=== PATIENT | male | born 1965 | race Caucasian/White ===

== ENCOUNTER → 2019-04-17 | Outpatient (CLI) | payer BC ==
--- NOTE | 2019-04-17 13:29 | P.STRESS ---
- Stress Test Note Stress Test Results/Findings: Exam Performed: NM stress cardiolite complete Exam Date: 04/17/19 Reason for Exam: ABNORMAL EKG, CHEST PAIN, JESSIE Height: 6 ft 2 in Weight: 190 kg Protocol: CARDIOLITE TIAGO Stage: III Duration of Exercise: 7:10 Resting Heart Rate: 67 Resting Blood Pressure: 149/98 Maximum Achieved Heart Rate: 152 Maximum Achieved Blood Pressure: 189/91 85% PMHR: 140 100% PMHR: 165 METS: 8.7 Technologist Comment: Stress Test Results/Findings: His is a 54-year-old gentleman with history of smoking being evaluated for chest pain and shortness of breath. Stress data: Baseline EKG showed sinus rhythm with normal SD interval and QRS duration. Blood pressure at rest is 149/98, pulse rate of 67. Patient walked on the Tiago protocol for 7 minutes and 10 seconds achieving a maximum rate of 150 with blood pressure 189/91. EKGs taken during and after exercise did not reveal any significant changes from the baseline. Final impression #1. Negative stress test #2 patient did not experience any chest pain #3 . Report on the nuclear images to be given by the radiologist
--- NOTE | 2019-04-17 13:50 | EST ---
Stress Test Results/Findings: Exam Performed: NM stress cardiolite complete Exam Date: 04/17/19 Reason for Exam: ABNORMAL EKG, CHEST PAIN, JESSIE Height: 6 ft 2 in Weight: 190 kg Protocol: CARDIOLITE TIAGO Stage: III Duration of Exercise: 7:10 Resting Heart Rate: 67 Resting Blood Pressure: 149/98 Maximum Achieved Heart Rate: 152 Maximum Achieved Blood Pressure: 189/91 85% PMHR: 140 100% PMHR: 165 METS: 8.7 Technologist Comment: Stress Test Results/Findings: His is a 54-year-old gentleman with history of smoking being evaluated for chest pain and shortness of breath. Stress data: Baseline EKG showed sinus rhythm with normal MN interval and QRS duration. Blood pressure at rest is 149/98, pulse rate of 67. Patient walked on the Tiago protocol for 7 minutes and 10 seconds achieving a maximum rate of 150 with blood pressure 189/91. EKGs taken during and after exercise did not reveal any significant changes from the baseline. Final impression #1. Negative stress test #2 patient did not experience any chest pain #3 . Report on the nuclear images to be given by the radiologist LAVELLE
--- NOTE | 2019-04-17 14:08 | NM ---
EXAMINATION TYPE: NM stress cardiolite complete DATE OF EXAM: 04/17/2019 COMPARISON: NONE HISTORY: Chest pain TECHNIQUE: After the intravenous administration of 9.6 mCi Tc 99m Sestamibi - Rest images obtained 4 5 minutes post injection. The patient exercised using a CHANDU protocol and 1 minute prior to peak e xercise was injected with 26.3 mCi Tc 99m Sestamibi - Stress images obtained 10 minutes post injectio n. FINDINGS: Targeted heart rate was achieved during performance of the study. Review of stress and rest SPECT danica ges demonstrates decreased uptake on both stress and rest images along the inferior wall left ventric le extending to the inferoseptal and inferolateral left ventricle wall. Gated analysis shows normal wall motion with an estimated left ventricular ejection fraction of 64 %. IMPRESSION: No scintigraphic evidence for reversible ischemia. Correlate for possible prior infarct along the inf erior wall left ventricle Consider echocardiographic correlation for elevated ejection fraction.
== END | disposition home or self-care (01) ==
LOC: RADNMMAIN 08:43
PROVIDERS: ATTEND Family Medicine
DX: R07.9 Chest pain, unspecified (principal)
CPT/HCPCS: 93017; 78452; A9500

== ENCOUNTER → 2019-04-30 | Outpatient (CLI) | payer BC ==
--- NOTE | 2019-05-06 11:01 | ECHOF ---
Referral Reason:R94.39 Abnormal results on cardiovasular study MEASUREMENTS -------- HEIGHT: 182.9 cm WEIGHT: 88.5 kg BP: RVIDd: 3.7 cm (< 3.3) IVSd: 1.2 cm (0.6 - 1.1) LVIDd: 4.3 cm (3.9 - 5.3) LVPWd: 1.1 cm (0.6 - 1.1) IVSs: 1.4 cm LVIDs: 3.4 cm LVPWs: 1.0 cm LA Diam: 3.3 cm (2.7 - 3.8) LAESV Index (A-L): 24.06 ml/m Ao Diam: 3.3 cm (2.0 - 3.7) AV Cusp: 2.3 cm (1.5 - 2.6) MV EXCURSION: 18.221 mm (> 18.000) MV EF SLOPE: 89 mm/s (70 - 150) EPSS: 0.4 cm MV E Aj: 0.65 m/s MV DecT: 116 ms MV A Aj: 0.70 m/s MV E/A Ratio: 0.93 RAP: 5.00 mmHg RVSP: 22.56 mmHg FINDINGS -------- Sinus rhythm. This was a technically good study. The left ventricular size is normal. There is mild concentric left ventricular hypertrophy. Overa ll left ventricular systolic function is normal with, an EF between 55 - 60 %. The diastolic fillin g pattern is normal for the age of the patient 6.81. The right ventricle is normal in size. The left atrial size is normal. Normal LA size by volume 22+/-6 ml/m2. The right atrial size is normal. There is mild aortic valve sclerosis. There is no evidence of aortic regurgitation. Mild mitral annular calcification present. Mild mitral regurgitation is present. Mild tricuspid regurgitation present. Right ventricular systolic pressure is normal at < 35 mmHg. There is no evidence of pulmonary hypertension. There is no pulmonic regurgitation present. The aortic root size is normal. Echo free space represents a pericardial fat pad. CONCLUSIONS -------- 1. Sinus rhythm. 2. This was a technically good study. 3. The left ventricular size is normal. 4. There is mild concentric left ventricular hypertrophy. 5. Overall left ventricular systolic function is normal with, an EF between 55 - 60 %. 6. The diastolic filling pattern is normal for the age of the patient 6.81 7. The right ventricle is normal in size. 8. The left atrial size is normal. 9. Normal LA size by volume 22+/-6 ml/m2. 10. The right atrial size is normal. 11. There is mild aortic valve sclerosis. 12. Mild mitral annular calcification present. 13. Mild tricuspid regurgitation present. 14. Right ventricular systolic pressure is normal at < 35 mmHg. 15. There is no evidence of pulmonary hypertension. 16. There is no pulmonic regurgitation present. 17. The aortic root size is normal. 18. Echo free space represents a pericardial fat pad. ACCOUNTING POLICY CONSULTANT: Kalina Renteria RDCS
== END | disposition home or self-care (01) ==
LOC: RADECHMAIN 16:19
PROVIDERS: ATTEND Family Medicine
DX: R94.39 Abnormal result of other cardiovascular function study (principal)
CPT/HCPCS: 93306

== ENCOUNTER 2021-04-04 13:26 | Observation (INO) | payer BC ==
--- NOTE | 2021-04-04 15:21 | CT ---
EXAMINATION TYPE: CT brain wo con DATE OF EXAM: 04/04/2021 COMPARISON: 09/24/2009 INDICATION: double vision DLP: 1085.8 mGycm, Automated exposure control for dose reduction was used. CONTRAST: None CT of the brain is performed utilizing 3 mm thick sections through the posterior fossa and 3 mm thick sections through the remaining calvarium. Study is performed within 24 hours of arrival to the hosp [facility]. No abnormal hyperdensity is present to suggest an acute intracranial hemorrhage. No mass lesion is evident. No acute infarcts are evident. Ventricles and sulci are appropriate for the patient age. Mucosal thickening is through the maxillary sinuses. Remaining paranasal sinuses and mastoid air cell s are clear. IMPRESSIONS: 1. No suspicious acute intracranial changes. If symptoms persist, consider MRI for additional jyoti p.
[2021-04-04 15:24] LABS: ALT 15 U/L (4-49); AST 25 U/L (17-59); African American GFR (CKD) >90 (>60 ml/min/1.73 sqM); Albumin 4.1 g/dL (3.5-5.0); Alkaline Phosphatase 100 U/L (38-126); Anion Gap 10 mmol/L; Blood Urea Nitrogen 13 mg/dL (9-20); Calcium 9.5 mg/dL (8.4-10.2); Carbon Dioxide 24 mmol/L (22-30); Chloride 109 mmol/L (98-107); Glucose 82 mg/dL (74-99); Non-African American GFR(CKD) >90 (>60 ml/min/1.73 sqM); Potassium 4.2 mmol/L (3.5-5.1); Sodium 143 mmol/L (137-145); Total Bilirubin 0.6 mg/dL (0.2-1.3); Total Protein 7.3 g/dL (6.3-8.2)
[2021-04-04 15:31] LABS: HCT 45.1 % (39.0-53.0); HGB 14.9 gm/dL (13.0-17.5); MCH 30.9 pg (25.0-35.0); MCHC 33.1 g/dL (31.0-37.0); MCV 93.4 fL (80.0-100.0); Mean Platelet Volume 7.1; Platelet Count 299 k/uL (150-450); RBC 4.83 m/uL (4.30-5.90); RDW 14.1 % (11.5-15.5); WBC 6.3 k/uL (3.8-10.6)
--- NOTE | 2021-04-04 15:37 | ED ---
General Adult HPI - General Chief complaint: Eye Problems Stated complaint: double vision Time Seen by Provider: 04/04/21 13:35 Source: patient, family, RN notes reviewed, old records reviewed Mode of arrival: ambulatory Limitations: no limitations - History of Present Illness Initial comments: This is a 56-year-old male who presents emergency Department complaining of double vision. Patient states he woke up this morning with a double vision. Patient states if he closes his right eye the double vision appears to go away. Patient states he cannot make the double vision occurred is not always there. Patient states he is also diagnosed with COVID this morning. Patient denies any headache patient denies any numbness or weakness. Patient denies any slurred speech. Patient denies any other problems at this time besides the COVID in the double vision. Patient denies any other medical problems. - Related Data Home Medications Medication Instructions Recorded Confirmed Aspirin 81 mg PO DAILY 03/02/16 03/02/16 Cholecalciferol [Vitamin D3] 1,000 unit PO DAILY 03/02/16 03/02/16 Cinnamon Bark [Cinnamon] 500 mg PO DAILY 03/02/16 03/02/16 [place]-3 Fatty Acids/Fish Oil [Fish 1 each PO DAILY 03/02/16 03/02/16 Oil 1,000 mg Softgel] Ranitidine HCl 150 mg PO DAILY 03/02/16 03/07/16 Allergies Allergy/AdvReac Type Severity Reaction Status Date / Time No Known Allergies Allergy Verified 04/04/21 13:44 Review of Systems ROS Statement: Those systems with pertinent positive or pertinent negative responses have been documented in the HPI. ROS Other: All systems not noted in ROS Statement are negative. Past Medical History Past Medical History: GERD/Reflux History of Any Multi-Drug Resistant Organisms: None Reported Past Surgical History: No Surgical Hx Reported Additional Past Anesthesia/Blood Transfusion Reaction / Comment(s): never had anesthesia, no family problems with anesthesia Past Psychological History: No Psychological Hx Reported Smoking Status: Current every day smoker Past Alcohol Use History: Occasional Past Drug Use History: None Reported - Past Family History Mother Family Medical History: Cancer General Exam - General Exam Comments Initial Comments: GENERAL: Patient is well-developed and well-nourished. Patient is nontoxic and well- hydrated and is in no acute distress. ENT: Neck is soft and supple. No significant lymphadenopathy is noted. Oropharynx is clear. Moist mucous membranes. Neck has full range of motion without eliciting any pain. EYES: The sclera were anicteric and conjunctiva were pink and moist. Extraocular motion appears to be intact however the right eye moves medially quicker than expected.. Eyelids were unremarkable. PULMONARY: Unlabored respirations. Good breath sounds bilaterally. No audible rales rhonchi or wheezing was noted. CARDIOVASCULAR: There is a regular rate and rhythm without any murmurs gallops or rubs. ABDOMEN: Soft and nontender with normal bowel sounds. No palpable organomegaly was noted. There is no palpable pulsatile mass. SKIN: Skin is clear with no lesions or rashes and otherwise unremarkable. NEUROLOGIC: Patient is alert and oriented x3. Cranial nerves II through XII are grossly intact. Motor and sensory are also intact. Normal speech, volume and content. Symmetrical smile. MUSCULOSKELETAL: Normal extremities with adequate strength and full range of motion. LYMPHATICS: No significant lymphadenopathy is noted PSYCHIATRIC: Normal psychiatric evaluation. Limitations: no limitations Course Vital Signs 04/04/21 04/04/21 13:36 15:56 Temperature 97.0 F L 98.3 F Pulse Rate 78 72 Respiratory 18 18 Rate Blood Pressure 140/90 159/91 O2 Sat by Pulse 98 96 Oximetry Medical Decision Making - Medical Decision Making I spoke with Dr. Gilmore the neurologist and he states he will see the patient as soon as he can. CT of the head and CT a of the head and neck showed no acute abnormality. Dr. Gilmore saw the patient in the emergency department and agreed his extraocular motion was not normal. Patient agreed to stay I spoke with the [facility] hospitalist agreed to admit the patient admitted the patient wrote admitting orders and consult to Dr. Roberto. - Lab Data Result diagrams: 04/04/21 14:56 04/04/21 14:56 Lab Results 04/04/21 04/04/21 Range/Units 14:56 14:56 WBC 6.3 (3.8-10.6) k/uL RBC 4.83 (4.30-5.90) m/uL Hgb 14.9 (13.0-17.5) gm/dL Hct 45.1 (39.0-53.0) % MCV 93.4 (80.0-100.0) fL MCH 30.9 (25.0-35.0) pg MCHC 33.1 (31.0-37.0) g/dL RDW 14.1 (11.5-15.5) % Plt Count 299 (150-450) k/uL MPV 7.1 Neutrophils % (Manual) 43 % Band Neuts % (Manual) 7 % Lymphocytes % (Manual) 37 % Monocytes % (Manual) 11 % Eosinophils % (Manual) 2 % Neutrophils # (Manual) 3.10 (1.3-7.7) k/uL Lymphocytes # (Manual) 2.33 (1.0-4.8) k/uL Monocytes # (Manual) 0.69 (0-1.0) k/uL Eosinophils # (Manual) 0.13 (0-0.7) k/uL Nucleated RBCs 0 (0-0) /100 WBC Polychromasia Present Sodium 143 (137-145) mmol/L Potassium 4.2 (3.5-5.1) mmol/L Chloride 109 H (98-107) mmol/L Carbon Dioxide 24 (22-30) mmol/L Anion Gap 10 mmol/L BUN 13 (9-20) mg/dL Creatinine 0.77 (0.66-1.25) mg/dL Est GFR (CKD-EPI)AfAm >90 (>60 ml/min/1.73 sqM) Est GFR (CKD-EPI)NonAf >90 (>60 ml/min/1.73 sqM) Glucose 82 (74-99) mg/dL Calcium 9.5 (8.4-10.2) mg/dL Total Bilirubin 0.6 (0.2-1.3) mg/dL AST 25 (17-59) U/L ALT 15 (4-49) U/L Alkaline Phosphatase 100 (38-126) U/L Total Protein 7.3 (6.3-8.2) g/dL Albumin 4.1 (3.5-5.0) g/dL Disposition Clinical Impression: Binocular vision disorder with diplopia, COVID-19 Disposition: ADMITTED IP TO THIS [facility] Referrals: Ryan Adan DO [Primary Care Provider] - 1-2 days Time of Disposition: 16:34
--- NOTE | 2021-04-04 15:42 | CT ---
EXAMINATION TYPE: CT angio head neck DATE OF EXAM: 04/04/2021 HISTORY: double vision COMPARISON: None CT DLP: 454.6 mGycm. Automated Exposure Control for Dose Reduction was Utilized. TECHNIQUE: CTA scan of the neck is performed with IV Contrast, patient injected with 65 mL of Isovue 370, axial images are obtained, coronal and sagittal reformatted images are reviewed. Three-D recons tructed images are created on an independent workstation and reviewed. Source images are reviewed. FINDINGS: Carotid/Vascular Structures: There is a three-vessel arch. Plaquing is present of the carotid bifurca tions without significant flow-limiting stenosis. Internal carotid arteries are patent to the level o f the skull base. Left vertebral artery may be dominant. Cervical of [place]: Vertebral basilar system appears normal. Posterior cerebral vasculature is unrema rkable. Internal carotid arteries bifurcate normally into A1 and M1 segments. A2 segments are normal. The anterior communicating artery is patent. Left Posterior communicating artery is patent. Right po sterior communicating artery is patent. IMPRESSION: 1. No flow-limiting stenosis bilateral carotid bifurcations. 2. Normal eagle of [place] NASCET criteria was used in interpretation of this exam?
[2021-04-04 15:59] LABS: Band Neutrophils % 7 %; Eosinophils # (M) 0.13 k/uL (0-0.7); Lymphocytes # (M) 2.33 k/uL (1.0-4.8); Monocytes # (M) 0.69 k/uL (0-1.0); Neutrophils % (M) 43 %; Nucleated Red Blood Cells 0 /100 WBC (0-0); Polychromasia Present; Total Cells Counted 100
--- NOTE | 2021-04-04 16:45 | P.CNNES ---
History of Present Illness Consult date: 04/04/21 Requesting physician: Marck Hernandez Reason for Consult: diplopia History of Present Illness: This is a 56-year-old gentleman with history of bilateral hearing loss, tobacco use who presented emergency department on 04/04/2021 for complaints of sudden onset of double vision. He stated that he woke up in the morning today at 6am and noticed he hwas having diplopia while looking at thing and felt it was horizontal. Noticed it when both eyes were open and when he covered either eye it went away. He denies any other neurological problem associated with it. He was feeling generalized weakness. He was tested positive for COVID-19 today at 10am as outpatient. Patient denies any focal weakness, numbness, difficulty getting his words out, swallowing. His last normal state was around 8:30pm last night. He denies any falls recently. He denies history of stroke or TIA, hypertension or diabetes. He said he has been having hearing loss out of both ears for some time and progressively worsening (could not tell me exactly for how long). He smokes 1PPD for 30 years. He uses marijuana. He denies illicit drug use. He socially drinks alcohol use. Some of the workup in the hospital consisted of. Initial vital signs was blood pressure 140/90, heart rate of 78, respiratory of 18, temperature of 97.0 Fahrenheit oral pulse ox of 98% room air. CBC with differential and chemistry panel is unremarkable. CT of the head is reported as no suspicious acute intracranial changes. If symptoms persist consider MRI for additional workup. I personally reviewed the CT of the head and there is no acute or subacute ischemia that's appreciable as well as no intraparenchymal hemorrhage. CT angiography of the head and neck is reported as normal. Review of Systems Review of system: The 12 point system was reviewed and apparent positive and negative per HPI. Past Medical History Past Medical History: GERD/Reflux History of Any Multi-Drug Resistant Organisms: None Reported Past Surgical History: No Surgical Hx Reported Additional Past Anesthesia/Blood Transfusion Reaction / Comment(s): never had anesthesia, no family problems with anesthesia Past Psychological History: No Psychological Hx Reported Smoking Status: Current every day smoker Past Alcohol Use History: Occasional Past Drug Use History: None Reported - Past Family History Mother Family Medical History: Cancer Medications and Allergies Home Medications Medication Instructions Recorded Confirmed Type Aspirin 81 mg PO DAILY 03/02/16 03/02/16 History Cholecalciferol [Vitamin D3] 1,000 unit PO DAILY 03/02/16 03/02/16 History Cinnamon Bark [Cinnamon] 500 mg PO DAILY 03/02/16 03/02/16 History [place]-3 Fatty Acids/Fish Oil [Fish 1 each PO DAILY 03/02/16 03/02/16 History Oil 1,000 mg Softgel] Ranitidine HCl 150 mg PO DAILY 03/02/16 03/07/16 History Allergies Allergy/AdvReac Type Severity Reaction Status Date / Time No Known Allergies Allergy Verified 04/04/21 13:44 Physical Examination - Vital Signs Vital Signs: Vital Signs Temp Pulse Resp BP Pulse Ox 04/04/21 13:36 97.0 F L 78 18 140/90 98 Intake and Output 04/04/21 04/04/21 04/04/21 06:59 14:59 22:59 Other: Weight 90.718 kg GENERAL: The patient is lying in bed and is not in acute distress. CHEST: The heart rate is regular rate rhythm. No murmurs to auscultation. No carotid bruit bilaterally. LUNG: Clear to auscultation bilaterally no wheezing noted throughout. Not labored breathing. ABDOMEN/GI: Bowel sounds present in all 4 quadrants. No tenderness to palpation throughout. NEUROLOGICAL: Higher mental function: The patient is awake, alert, oriented to self, place and time. Patient is following commands. No aphasia and no neglect. Cranial nerves: The pupils are round, right pupil is 5mm while left is 4mm and reactive to light. I felt there is ?slight decrease in consenual over the right eye but upon repeating it was normal. Visual aguilar are full to confrontation throughout. Extraocular movement is seems somewhat disconjugate in which the right eye pursuit was somewhat fast and did not alight with tracking compared to left looking horizontally and upward. Upon looking upwards it seem he looked upward and inward. No nystagmus appreciated. Facial sensation is normal to touch throughout. The facial strength is normal throughout. Hearing is severely decreased to hand rub. Tongue is midline and moved [id number] without any difficulty. No dysarthria is noted. Shoulder shrug is normal bilaterally. Motor: Gait is normal with normal arm swings. The strength is 5 over 5 throughout. Normal tone and bulk. Cerebellum: Normal finger to nose heel to duckworth bilaterally. Sensation: Sensation is normal to touch throughout. Reflexes (right/left): 2+ throughout. Plantars are mute bilaterally. Results - Laboratory Findings CBC and BMP: 04/04/21 14:56 04/04/21 14:56 Abnormal Lab Findings: Abnormal Labs 04/04/21 14:56 Chloride 109 H Assessment and Plan Assessment: Acute Diplopia (horizontal diplopia and appears there is possibly defect with right eye on examination). Unsure if nerve palsy vs muscle defect. Acute COVID-19 pneumonia (tested positive today at outside) Hearing loss out of both ears and progressively worsening. Tobacco use 1PPD for 30 years Plan: Ordered MRI Brain and Orbit w/ and w/o. Recommend Ophthamology consult. Recommend patient to wear eye patch. Q4 hour neuro checks. Ordered TSH, Vitamin B12, folate levels. Patient was counseled on tobacco cessation. The plan is discussed with the patient and ED attending. Thank you for the consultation. Levar Gilmore M.D. Neuro-Hospitalist Time with Patient: Greater than 30
[2021-04-04 18:50] VITALS: RESP 18
[2021-04-05] MEDS ORDERED: NICOTINE 14MG/24HR PATCH TRANSDERM STA (10:10)
[2021-04-05 11:14] VITALS: TEMP 98.1
--- NOTE | 2021-04-05 11:17 | P.PN ---
Subjective Progress Note Date: 04/05/21 The patient is seen at bedside and he felt today he noticed he is having diplopia vertical ontop of horizontal when his eyes are open but when closed resolve. Otherwise denies any new neurological problems. Objective - Vital Signs Vital signs: Vital Signs Temp 98.4 F 04/05/21 06:40 Pulse 73 04/05/21 06:40 Resp 18 04/05/21 06:40 BP 127/72 04/05/21 06:40 Pulse Ox 95 04/05/21 06:40 Intake & Output 04/04/21 04/05/21 04/05/21 18:59 06:59 18:59 Weight 90.718 kg - Exam GENERAL: The patient is lying in bed and is not in acute distress. NEUROLOGICAL: Higher mental function: The patient is awake, alert, oriented to self, place and time. Patient is following commands. No aphasia and no neglect. Cranial nerves: The pupils are round, right pupil is 5mm while left is 4mm and reactive to light. I felt there is ?slight decrease in consenual over the right eye but upon repeating it was normal. Visual aguilar are full to confrontation throughout. Patient has diplopia out of both eyes and was horizontal. Extraocular movement is seems somewhat disconjugate in which the right eye pursuit was somewhat fast and did not alight with tracking compared to left looking horizontally and upward. But I also felt the patient has partial to minimal defect in looking to far left (lateral recutus over left). Upon looking upwards it seem he looked upward and inward. No nystagmus appreciated. Facial sensation is normal to touch throughout. The facial strength is normal throughout. Hearing is severely decreased to hand rub. Tongue is midline and moved [id number] without any difficulty. No dysarthria is noted. Shoulder shrug is normal bilaterally. Motor: Gait is normal with normal arm swings. The strength is 5 over 5 throughout. Normal tone and bulk. Cerebellum: Normal finger to nose heel to [place] bilaterally. Sensation: Sensation is normal to touch throughout. Reflexes (right/left): 2+ throughout. Plantars are mute bilaterally. WORK-UP: TSH is 2.290. Serum folate is 15.8 Vitamin B12 is 958. CT of the head is reported as no suspicious acute intracranial changes. If symptoms persist consider MRI for additional workup. I personally reviewed the CT of the head and there is no acute or subacute ischemia that's appreciable as well as no intraparenchymal hemorrhage. CT angiography of the head and neck is reported as normal. - Labs CBC & Chem 7: 04/04/21 14:56 18 14:56 Labs: Abnormal Lab Results - Last 24 Hours (Table) 04/04/21 04/04/21 Range/Units 14:56 14:56 Chloride 109 H (98-107) mmol/L Vitamin B12 958.0 H (200.0-944.0) pg/mL Assessment and Plan Assessment: Acute Diplopia (horizontal and vertical diplopia). Unsure if nerve palsy vs muscle defect. Rule out stroke. Acute COVID-19 pneumonia (tested positive today at outside on 04/04/21) Hearing loss out of both ears and progressively worsening. Tobacco use 1PPD for 30 years Plan: Ordered MRI Brain and Orbit w/ and w/o and pending to be done. I'll not start the patient on anti-platelets or statin unless the MRI is positive for stroke. Ophthalmology team is consulted and pending to be seen. Ordered 2-D echo and the ED ordered lipid panel. Recommend patient to wear eye patch intermittently. Q4 hour neuro checks. Ordered HbA1c Patient was counseled on tobacco cessation. Upon discharge recommend the patient follow up with a neurologist as well as flare breaker within 1-2 weeks. The plan is discussed with the patient and his nurse. UPDATE: MRI of the brain and orbit is reported as no evident subacute infarct. Nonspecific white matter demyelination. Sinus disease. As well as for the orbit the shows no mass. No abnormal enhancement within the orbit. I personally reviewed the MRI of the brain and there is no acute subacute ischemia. I feel the patient's symptoms are likely due to ophthalmological issue. This was relayed to the patient's nurse. Levar Gilmore M.D. Neuro-Hospitalist Time with Patient: Less than 30
[2021-04-05 11:20] LABS: Chol/HDL Ratio 6.22 Ratio; LDL Cholesterol,Calculated 140.5 mg/dL (0.0-131.0)
--- NOTE | 2021-04-05 12:19 | ECHOF ---
Referral Reason:stroke MEASUREMENTS -------- HEIGHT: 188.0 cm WEIGHT: 90.7 kg BP: 116/89 RVIDd: 3.1 cm (< 3.3) IVSd: 1.1 cm (0.6 - 1.1) LVIDd: 4.3 cm (3.9 - 5.3) LVPWd: 1.2 cm (0.6 - 1.1) IVSs: 1.4 cm LVIDs: 3.2 cm LVPWs: 1.8 cm LA Diam: 3.3 cm (2.7 - 3.8) Ao Diam: 3.6 cm (2.0 - 3.7) AV Cusp: 2.7 cm (1.5 - 2.6) MV EXCURSION: 14.577 mm (> 18.000) MV EF SLOPE: 90 mm/s (70 - 150) EPSS: 0.5 cm MV E Aj: 0.85 m/s MV DecT: 202 ms MV A Aj: 0.70 m/s MV E/A Ratio: 1.22 FINDINGS -------- Sinus rhythm. This was a technically good study. The left ventricular size is normal. There is borderline concentric left ventricular hypertrophy. Overall left ventricular systolic function is normal with, an EF between 55 - 60 %. The right ventricle is normal in size. Normal LA size by volume 22+/-6 ml/m2. The right atrium is normal in size. Interatrial and interventricular septum intact. The aortic valve is trileaflet, and appears structurally normal. No aortic stenosis or regurgitation. The mitral valve is normal. The tricuspid valve appears structurally normal. Unable to estimate RVSP due to inadequate TR jet s pectral doppler profile. The pulmonic valve is normal. The aortic root size is normal. Normal inferior vena cava with normal inspiratory collapse consistent with estimated right atrial pre ssure of 5 mmHg. There is no pericardial effusion. CONCLUSIONS -------- 1. The left ventricular size is normal. 2. There is borderline concentric left ventricular hypertrophy. 3. Overall left ventricular systolic function is normal with, an EF between 55 - 60 %. 4. There is no pericardial effusion. UNDERGROUND ROOF BOLTER: Radha Salmeron RD
--- NOTE | 2021-04-05 13:21 | P.DS ---
Providers Date of admission: 04/04/21 16:39 Attending physician: Orquidea Hendrickson Consults: 04/04/21 16:23 Consult Physician Stat Consulting Provider: Levar Gilmore Consult Reason/Comments: Diplopia Do you want consulting provider notified?: Already Contacted 04/04/21 16:38 Consult Physician Routine Consulting Provider: Elvin Ma Consult Reason/Comments: Binocular diplopia Do you want consulting provider notified?: Yes Primary care physician: [facility] Course: Patient is a pleasant 56-year-old male came in with the diplopia which started yesterday. Patient had some weakness which is limiting abduction in the left eye towards left side and in the conjugate gaze. Patient denied any other weakness or tingling numbness. Patient had nausea vomiting fevers chills. Patient symptoms of sudden onset. Patient was a valid by neurology CT angios of the head and neck and a noncontrast CT of the head is negative. Patient is incidentally found to have COVID-19 although symptoms at this time. Patient is saturating at 97% on room air. Neurology validate the patient that recommending an MRI and ophthalmology evaluation either inpatient or outpatient. REVIEW OF SYSTEMS: CONSTITUTIONAL: No fever, no malaise, no fatigue. HEENT: No recent visual problems or hearing problems. Denied any sore throat. CARDIOVASCULAR: No chest pain, orthopnea, PND, no palpitations, no syncope. PULMONARY: No shortness of breath, no cough, no hemoptysis. GASTROINTESTINAL: No diarrhea, no nausea, no vomiting, no abdominal pain. NEUROLOGICAL: No headaches, no weakness, no numbness. HEMATOLOGICAL: Denies any bleeding or petechiae. GENITOURINARY: Denies any burning micturition, frequency, or urgency. MUSCULOSKELETAL/RHEUMATOLOGICAL: Denies any joint pain, swelling, or any muscle pain. ENDOCRINE: Denies any polyuria or polydipsia. The rest of the 14-point review of systems is negative. PHYSICAL EXAMINATION: GENERAL: The patient is alert and oriented x3, not in any acute distress. Well developed, well nourished. HEENT: Pupils are round and equally reacting to light. EOMI. No scleral icterus. No conjunctival pallor. Normocephalic, atraumatic. No pharyngeal erythema. No thyromegaly. CARDIOVASCULAR: S1 and S2 present. No murmurs, rubs, or gallops. PULMONARY: Chest is clear to auscultation, no wheezing or crackles. ABDOMEN: Soft, nontender, nondistended, normoactive bowel sounds. No palpable organomegaly. MUSCULOSKELETAL: No joint swelling or deformity. EXTREMITIES: No cyanosis, clubbing, or pedal edema. NEUROLOGICAL: Gross neurological examination did not reveal any focal deficits except for weakness in right lateral rectus and the conjugate gaze for detailed your exam please refer to neurology documentation. SKIN: No rashes. Assessment and plan -Diplopia etiology is not clear it can be secondary to nerve palsy versus local muscle weakness. MRI is being obtained if that's negative patient will be evaluated by ophthalmology for inpatient or outpatient. We'll rule out cerebrovascular accident. -COVID-19 infection a symptomatically at this time patient will be discharged on code vitamins -Hyperlipidemia patient will be discharged on Lipitor and at counseling was provided -Nicotine use smokes about half a pack a day counseling was provided regarding this. Plan - Discharge Summary New Discharge Prescriptions: New Ascorbic Acid [Vitamin C] 500 mg PO DAILY #30 tablet Cholecalciferol [Vitamin D3 (25 Mcg = 1000 Iu)] 25 mcg PO DAILY #30 tab Zinc Sulfate 220 mg PO DAILY #20 capsule Atorvastatin Calcium [Lipitor] 10 mg PO HS #30 tab Discharge Medication List Ascorbic Acid [Vitamin C] 500 mg PO DAILY #30 tablet 04/05/21 [Rx] Atorvastatin Calcium [Lipitor] 10 mg PO HS #30 tab 04/05/21 [Rx] Cholecalciferol [Vitamin D3 (25 Mcg = 1000 Iu)] 25 mcg PO DAILY #30 tab 04/05/21 [Rx] Zinc Sulfate 220 mg PO DAILY #20 capsule 04/05/21 [Rx] Follow up Appointment(s)/Referral(s): Kimberley Oconnor MD [STAFF PHYSICIAN] - 1-2 Days Ryan Adan DO [Primary Care Provider] - 3 Days
[2021-04-05 15:15] VITALS: BP 133/87; PULSE 84
--- NOTE | 2021-04-05 16:13 | MR ---
EXAMINATION TYPE: MR brain/orbits wo/w con DATE OF EXAM: 04/05/2021 COMPARISON: CT brain 04/04/2021 HISTORY: Acute Diplopia TECHNIQUE: Multiplanar, multisequence images of the brain and brainstem, orbits is performed without and with IV contrast, utilizing 9ml mL intravenous Gadavist . FINDINGS: Diffusion weighted images demonstrate no evidence of a recent infarct or other diffusion ab normality. There is no extra-axial fluid collection, subcortical, periventricular hyperintensity and inversion recovery T2-weighted sequences is noted, there is also similar focus present within the po ns, axial image 11, 3-5 lesions are present. The ventricular system and cisternal spaces are normal in size and appearance. The brain volume is age appropriate. Orbits show no mass. No abnormal enhancement within the orbits. There is some motion present. Midline structures demonstrate normal morphology. The craniocervical junction appears within normal limits. Post contrast images demonstrate no abnormal enhancement. The dural venous sinuses appear pa tent. The visualized sinuses are remarkable for inflammatory change within the maxillary sinus right greater than left, ethmoid air cells and frontal sinus, and the globes are intact and show abnormal c rossed gaze on postcontrast images, T2-weighted images. IMPRESSION: No evident subacute infarct. Nonspecific white matter demyelination. Sinus disease.
--- NOTE | 2021-04-08 09:15 | P.HPIM ---
History of Present Illness Patient is a pleasant 56-year-old male came in with the diplopia which started yesterday. Patient had some weakness which is limiting abduction in the left eye towards left side and in the conjugate gaze. Patient denied any other weakness or tingling numbness. Patient had nausea vomiting fevers chills. Patient symptoms of sudden onset. Patient was a valid by neurology CT angios of the head and neck and a noncontrast CT of the head is negative. Patient is incidentally found to have COVID-19 although symptoms at this time. Patient is saturating at 97% on room air. Neurology validate the patient that recommending an MRI and ophthalmology evaluation either inpatient or outpatient. REVIEW OF SYSTEMS: CONSTITUTIONAL: No fever, no malaise, no fatigue. HEENT: No recent visual problems or hearing problems. Denied any sore throat. CARDIOVASCULAR: No chest pain, orthopnea, PND, no palpitations, no syncope. PULMONARY: No shortness of breath, no cough, no hemoptysis. GASTROINTESTINAL: No diarrhea, no nausea, no vomiting, no abdominal pain. NEUROLOGICAL: No headaches, no weakness, no numbness. HEMATOLOGICAL: Denies any bleeding or petechiae. GENITOURINARY: Denies any burning micturition, frequency, or urgency. MUSCULOSKELETAL/RHEUMATOLOGICAL: Denies any joint pain, swelling, or any muscle pain. ENDOCRINE: Denies any polyuria or polydipsia. The rest of the 14-point review of systems is negative. PHYSICAL EXAMINATION: GENERAL: The patient is alert and oriented x3, not in any acute distress. Well developed, well nourished. HEENT: Pupils are round and equally reacting to light. EOMI. No scleral icterus. No conjunctival pallor. Normocephalic, atraumatic. No pharyngeal erythema. No thyromegaly. CARDIOVASCULAR: S1 and S2 present. No murmurs, rubs, or gallops. PULMONARY: Chest is clear to auscultation, no wheezing or crackles. ABDOMEN: Soft, nontender, nondistended, normoactive bowel sounds. No palpable organomegaly. MUSCULOSKELETAL: No joint swelling or deformity. EXTREMITIES: No cyanosis, clubbing, or pedal edema. NEUROLOGICAL: Gross neurological examination did not reveal any focal deficits except for weakness in right lateral rectus and the conjugate gaze for detailed your exam please refer to neurology documentation. SKIN: No rashes. Assessment and plan -Diplopia etiology is not clear it can be secondary to nerve palsy versus local muscle weakness. MRI is being obtained if that's negative patient will be evaluated by ophthalmology for inpatient or outpatient. We'll rule out cerebrovascular accident. -COVID-19 infection a symptomatically at this time patient will be discharged on code vitamins -Hyperlipidemia patient will be discharged on Lipitor and at counseling was provided -Nicotine use smokes about half a pack a day counseling was provided regarding this. Past Medical History Past Medical History: GERD/Reflux, Vascular Disorder Additional Past Medical History / Comment(s): Past high cholesterol, DVT L leg, past varicose veins History of Any Multi-Drug Resistant Organisms: None Reported Past Surgical History: Orthopedic Surgery Additional Past Surgical History / Comment(s): R ankle ORIF, L leg vein st ripping, colonoscopy, hemorrhoidectomy Past Anesthesia/Blood Transfusion Reactions: No Reported Reaction Additional Past Anesthesia/Blood Transfusion Reaction / Comment(s): never had anesthesia, no family problems with anesthesia Smoking Status: Current every day smoker - Past Family History Mother Family Medical History: Cancer Additional Family Medical History / Comment(s): Mother had breast and pancreatic cancer. Father Additional Family Medical History / Comment(s): Dad has balance issues/falls lately. Medications and Allergies Home Medications Medication Instructions Recorded Confirmed Type Ascorbic Acid [Vitamin C] 500 mg PO DAILY #30 tablet 04/05/21 Rx Atorvastatin Calcium [Lipitor] 10 mg PO HS #30 tab 04/05/21 Rx Cholecalciferol [Vitamin D3 (25 25 mcg PO DAILY #30 tab 04/05/21 Rx Mcg = 1000 Iu)] Zinc Sulfate 220 mg PO DAILY #20 capsule 04/05/21 Rx Allergies Allergy/AdvReac Type Severity Reaction Status Date / Time No Known Allergies Allergy Verified 04/04/21 17:15 Results CBC & Chem 7: 04/04/21 14:56 04/04/21 14:56 Thrombosis Risk Factor Assmnt - Choose All That Apply Any of the Below Risk Factors Present?: Yes Each Factor Represents 1 point: Age 41-60 years Other Risk Factors: No Other congenital or acquired thrombophilia - If yes, enter type in comment: No Thrombosis Risk Factor Assessment Total Risk Factor Score: 1 Thrombosis Risk Factor Assessment Level: Low Risk
== END 2021-04-05 17:15 | disposition home or self-care (01) ==
LOC: EC 13:26 → 3SCARD 16:39 → INTOOBSV 16:39 → 3SCARD 18:34 → UNDODISIN 04-05 17:15
PROVIDERS: ADMIT Internal Medicine; ATTEND Internal Medicine
DX: H53.2 Diplopia (principal); J12.82 Pneumonia due to coronavirus disease 2019; U07.1 COVID-19; E78.5 Hyperlipidemia, unspecified; F17.210 Nicotine dependence, cigarettes, uncomplicated; H91.93 Unspecified hearing loss, bilateral; I83.90 Asymptomatic varicose veins of unspecified lower extremity; Z79.82 Long term (current) use of aspirin; K21.9 Gastro-esophageal reflux disease without esophagitis; R11.2 Nausea with vomiting, unspecified; R50.9 Fever, unspecified; Z79.899 Other long term (current) drug therapy; E78.00 Pure hypercholesterolemia, unspecified; Z80.0 Family history of malignant neoplasm of digestive organs
CPT/HCPCS: 99285; 36415; 93306; 80061; 80053; 84443; 82607; 82746; 85025; 83036; 70496; 70450; 70498; 70543; 70553; G0378 ×2; S4990; A9585; Q9967

== ENCOUNTER → 2024-06-20 | Outpatient (CLI) | payer BC ==
--- NOTE | 2024-06-20 15:28 | MR ---
INDICATION: Patient age:Male; 59 years old; Reason for study: H49.21 SIXTH NERVE PALSY RIGHT EYE; [facility]. COMPARISON: MRI brain/orbits 04/05/2021, MRI brain 10/11/2009, CT brain 04/04/2021, 09/24/2009, CTA head and neck 04/04/2021, 09/24/2009. TECHNIQUE: Multi planar, multi sequence imaging was performed through the brain. The patient was then given 8.5 cc of Gadobutrol intravenously and multi planar, T1 fat-saturation images were obtained. FINDINGS: The thornton-white junctions, ventricular system, basal cisterns appear unremarkable. Age-appropriate cer ebral parenchymal volume. Diffusion-weighted imaging shows no evidence of restricted diffusion to sug gest acute/subacute infarct. Intracranial arterial flow voids are maintained. Midline structures show no abnormality. Similar minimal patchy foci of high T2/FLAIR signal intensity are seen within the garcia bcortical and periventricular white matter. Additional similar focus present within the ferny. Approxi mately 5 lesions are again present. The susceptibility weighted images demonstrate a focus of bloomin g artifact within the left cerebellum from prior hemosiderin deposition. After administration of gado linium, no abnormal enhancement is seen. Cannot exclude a vascular loop. The bone marrow signal is within normal limits. The globes are unremarkable. Mild mucosal thickening of the ethmoid sinuses. Similar trace bilateral mastoid effusions. IMPRESSION: 1. No evidence of intracranial mass, acute/subacute infarct, or abnormal enhancement. 2. Similar nonspecific minimal white matter changes, likely related to small vessel ischemic disease. Demyelinating disease, chronic migraines, vasculitis, Lyme disease are other considerations. [facility], , 06/20/2024 3:26 PM
== END | disposition home or self-care (01) ==
LOC: RADMRIMAIN 14:10
PROVIDERS: ATTEND Physician Assistant
DX: R90.82 White matter disease, unspecified (principal); G43.909 Migraine, unspecified, not intractable, without status migrainosus; H49.21 Sixth [abducent] nerve palsy, right eye; L95.9 Vasculitis limited to the skin, unspecified; A69.20 Lyme disease, unspecified
CPT/HCPCS: 70553; A9585